=== PATIENT | female | born 1965 | race Caucasian/White ===

== ENCOUNTER → 2018-05-21 | Outpatient (CLI) | payer OTHER ==
[~2018-05-21] MED LIST: ALPR.25T PO; AMLO1CAP4 PO; CETI10TA17 PO; CETI10TA20 PO; CIPR-225 PO; DESV50TA PO
--- NOTE | 2018-05-21 14:13 | Diagnostic Imaging Report ---
INDICATION: Routine screening. COMPARISON: 07/21/2014 and 04/01/2013. TECHNIQUE: 2D and 3D bilateral screening mammography was performed with CAD. FINDINGS: Bilateral breast implants are again noted. The implant contours appear smooth. Scattered fibroglandular densities in both breasts are noted. No mass or malignant appearing microcalcifications are seen. There are benign calcifications present. The axillae are unremarkable. IMPRESSION: No mammographic features suspicious for malignancy are identified. ACR BI-RADS Category 2: Benign findings. Result letter will be mailed to the patient. Note: At least 10% of breast cancer is not imaged by mammography. Dictated by: Dictated on workstation # [id number]
== END ==
LOC: RAD 10:32
PROVIDERS: ATTEND Internal Medicine
DX: Z12.31 Encounter for screening mammogram for malignant neoplasm of breast (principal)
CPT/HCPCS: 77067

== ENCOUNTER 2019-02-19 11:00 | Outpatient (CLI) | payer OTHER ==
[~2019-02-19] VITALS: Ht 175.3 cm; Wt 65.8 kg
[2019-02-19] MEDS ORDERED: AMLO1CAP7 PO (11:30)
[2019-02-20] MEDS ORDERED: AMLO1CAP7 PO (07:36)
[2019-02-20] MEDS ORDERED: HYDR-3812 PO (10:09)
[2019-02-20] MEDS ORDERED: CLIN150C17 PO (10:09)
== END 2019-02-19 11:35 | disposition home or self-care (01) ==
LOC: PREOP 11:00
PROVIDERS: ATTEND Podiatrist Foot & Ankle Surgery
DX: Z01.818 Encounter for other preprocedural examination (principal)
CPT/HCPCS: 87081

== ENCOUNTER 2019-02-20 06:07 | Day surgery (SDC) | payer OTHER ==
[~2019-02-20] VITALS: Ht 175.3 cm; Wt 65.8 kg
[~2019-02-20 06:07] MED LIST changes: +AMLO1CAP7 PO
[2019-02-20 06:15] VITALS: BP 98/72
--- OUTSIDE RECORDS SUMMARY | 2019-02-20 06:16 | XMS REPORT | Continuity of Care Document ---
Author Organization Unknown Address Unknown Allergies Active Description Code Type Severity Reaction Onset Reported/Identified Relationship to Patient Clinical Status Yes Penicillins [id number] Drug Allergy Unknown N/A 09/05/2012 Yes aspirin [id number] Drug Allergy Unknown N/A 04/14/2016 Yes gluten [id number] Drug Allergy Unknown HIVES, SWELLING 04/14/2016 Yes latex [id number] Drug Allergy Unknown ITCHING 04/14/2016 Yes SULFITES SULFITES Unknown throat swells/c 04/14/2016 Yes corn [id number] Drug Allergy Unknown N/A 02/19/2019 Yes nut - unspecified [id number] Drug Allergy Unknown N/A 02/19/2019 Yes sulfite [id number] Drug Allergy Unknown ANAPHYLAXIS 02/19/2019 Medications There is no data. Problems Date Dx Coded Attending Type Code Diagnosis Diagnosed By 04/14/2016 ROMINA HENSLEY MD Ot D72.829 ELEVATED WHITE BLOOD CELL COUNT, UNSPECI 04/14/2016 ROMINA HENSLEY MD Ot E86.0 DEHYDRATION 04/14/2016 ROMINA HENSLEY MD Ot E87.1 HYPO-OSMOLALITY AND HYPONATREMIA 04/14/2016 ROMINA HENSLEY MD Ot N39.0 URINARY TRACT INFECTION, SITE NOT SPECIF 05/22/2018 RHONA ANDERS MD Ot Z12.31 ENCNTR SCREEN MAMMOGRAM FOR MALIGNANT NE 05/22/2018 RHONA ANDERS MD Ot Z12.31 ENCNTR SCREEN MAMMOGRAM FOR MALIGNANT NE 07/03/2018 RHOAN ANDERS MD Ot L50.8 OTHER URTICARIA 07/03/2018 RHONA ANDERS MD Ot R10.9 UNSPECIFIED ABDOMINAL PAIN 01/04/2019 RHONA ANDERS MD Ot Z12.31 ENCNTR SCREEN MAMMOGRAM FOR MALIGNANT NE 01/04/2019 RHONA ANDERS MD Ot L50.8 OTHER URTICARIA 01/04/2019 RHONA ANDERS MD Ot R10.9 UNSPECIFIED ABDOMINAL PAIN 01/05/2019 RHONA ANDERS MD Ot Z12.31 ENCNTR SCREEN MAMMOGRAM FOR MALIGNANT NE 01/05/2019 RHONA ANDERS MD Ot L50.8 OTHER URTICARIA 01/05/2019 RHONA ANDERS MD Ot R10.9 UNSPECIFIED ABDOMINAL PAIN 02/13/2019 RHONA ANDERS MD Ot Z12.31 ENCNTR SCREEN MAMMOGRAM FOR MALIGNANT NE 02/13/2019 RHONA ANDERS MD Ot L50.8 OTHER URTICARIA 02/13/2019 RHONA ANDERS MD Ot R10.9 UNSPECIFIED ABDOMINAL PAIN 02/19/2019 MISAEL DPM, ANDREW Q Ot Z01.818 ENCOUNTER FOR OTHER PREPROCEDURAL EXAMIN 02/19/2019 MISAEL DPM, ANDREW Q Ot Z01.818 ENCOUNTER FOR OTHER PREPROCEDURAL EXAMIN 02/19/2019 MISAEL DPM, ANDREW Q Ot Z01.818 ENCOUNTER FOR OTHER PREPROCEDURAL EXAMIN 02/19/2019 MISAEL DPM, ANDREW Q Ot Z01.818 ENCOUNTER FOR OTHER PREPROCEDURAL EXAMIN 02/19/2019 MISAEL DPM, ANDREW Q Ot Z01.818 ENCOUNTER FOR OTHER PREPROCEDURAL EXAMIN Procedures There is no data. Results There is no data. Encounters ACCT No. Visit Date/Time Discharge Status Pt. Type Provider Facility Loc./Unit Complaint [id number] 02/19/2019 11:00:00 02/19/2019 11:35:00 DIS Outpatient MISAEL DPM, ANDREW Q [facility] PREOP HAMMERTOE [id number] 06/30/2018 11:48:00 06/30/2018 23:59:59 CLS Outpatient RHONA ANDERS MD [facility] LAB ABD PAIN R10.9 [id number] 05/21/2018 10:32:00 05/21/2018 23:59:59 CLS Outpatient RHONA ANDERS MD [facility] RAD SCREENING [id number] 04/14/2016 02:14:00 04/14/2016 05:29:00 DIS Emergency ROMINA HENSLEY MD [facility] ER NAUSEA [id number] 07/21/2014 08:44:00 07/21/2014 23:59:59 CLS Outpatient [id number] 04/01/2013 09:21:00 04/01/2013 23:59:59 CLS Outpatient [id number] 03/23/2013 07:43:00 03/23/2013 23:59:59 CLS Outpatient [id number] 02/20/2019 06:07:00 ACT Outpatient [facility] DOUGLAS DPM [facility]
[2019-02-20] MEDS ORDERED: LACTATED RINGERS 1,000 ML IV PRN (06:26)
[2019-02-20] MEDS ORDERED: CLINDAMYCIN 600 MG/50 ML IVPB 50 ML IV ONE (06:30)
[2019-02-20] MEDS ORDERED: CATHETER FLUSH 10 ML SYR IV PRN (07:00)
[2019-02-20] MEDS ORDERED: BUPIVACAINE 0.5% 30 ML (SENSORCAINE) VIAL ONE (07:17)
--- NOTE | 2019-02-20 07:34 | Progress Note-Pre Operative ---
Pre-Operative Progress Note H&P Reviewed The H&P was reviewed, patient examined and no changes noted. Date Seen by Provider: Feb 20, 2019 Time Seen by Provider: 07:33 Date H&P Reviewed: Feb 20, 2019 Time H&P Reviewed: 07:33 Pre-Operative Diagnosis: Hammertoe 2nd, Hypertrophic 2nd metatarsal, right foot ANDREW DOUGLAS DPM Feb 20, 2019 07:34
[2019-02-20] MEDS ORDERED: MIDAZOLAM 2 MG/2 ML (VERSED) VIAL ONE (07:35)
[2019-02-20] MEDS ORDERED: AMLO1CAP7 PO (07:36)
[2019-02-20] MEDS ORDERED: fentaNYL INJECTION 100 MCG/2 ML AMP ONE (07:51)
[2019-02-20] MEDS ORDERED: PROPOFOL INJECTION 0 ML IV ONE (08:24)
[2019-02-20] MEDS ORDERED: PROPOFOL INJECTION 50 ML IV ONE ×2 (08:54)
[2019-02-20] MEDS ORDERED: DEXAMETHASONE 10 MG/ML (DECADRON) 1 ML VIAL ONE (08:56)
[2019-02-20] MEDS ORDERED: LACTATED RINGERS 1,000 ML IV SCH (09:47)
--- NOTE | 2019-02-20 09:47 | Progress Note-Post Operative ---
Post-Operative Progess Note Surgeon (s)/Outside Plant Cable Engineer (s) Surgeon ANDREW DOUGLAS DPM Outside Plant Cable Engineer: none Pre-Operative Diagnosis Hammertoe 2nd, Hypertrophic 2nd metatarsal, right foot Post-Operative Diagnosis Same with plantar plate rupture Procedure & Operative Findings Date of Procedure 02/20/19 Procedure Performed/Findings Reduction of the 2nd hammertoe, 2nd metatarsal osteotomy, plantar plate repair 2nd MTPJ, all right foot Anesthesia Type General Estimated Blood Loss Estimated blood loss (mL): Minimal Specimens/Packing Specimens Removed None ANDREW DOUGLAS DPM Feb 20, 2019 09:47
[2019-02-20 09:55] VITALS: BP 103/70
[2019-02-20] MEDS ORDERED: HYDR-3812 PO (10:09)
[2019-02-20] MEDS ORDERED: CLIN150C17 PO (10:09)
[2019-02-20 10:25] VITALS: BP 92/65
--- NOTE | 2019-02-20 10:44 | Anesthesia-General Post-Op ---
MAC Patient Condition Mental Status/LOC: Same as Preop Cardiovascular: Satisfactory Nausea/Vomiting: Absent Respiratory: Satisfactory Pain: Controlled Complications: Absent Post Op Complications Complications None Follow Up Care/Instructions Patient Instructions None needed. Anesthesiology Discharge Order Discharge Order Patient is doing well, no complaints, stable vital signs, no apparent adverse anesthesia problems. No complications reported per nursing. JEREL MCADAMS CRNA Feb 20, 2019 10:44
--- NOTE | 2019-02-20 12:24 | Diagnostic Imaging Report ---
INDICATION: Hammertoe. FINDINGS: There has been external fixation of the right second DIP and PIP joints with a pin. There is also hardware in the distal aspect of the second metatarsal. Alignment is grossly normal. Soft tissues are unremarkable. IMPRESSION: Postsurgical changes in the right foot as described. Dictated by: Dictated on workstation # [id number]
--- NOTE | 2019-02-20 17:43 | OPERATIVE REPORT ---
DATE OF SERVICE: 02/20/2019 SURGEON: Elena Douglas DPM. PREOPERATIVE DIAGNOSES: 1. Hammer digit syndrome, right second toe. 2. Hypertrophic second metatarsal, right second. 3. Plantar plate rupture, right second metatarsophalangeal joint. POSTOPERATIVE DIAGNOSES: 1. Hammer digit syndrome, right second toe. 2. Hypertrophic second metatarsal, right second. 3. Plantar plate rupture, right second metatarsophalangeal joint. PROCEDURES: 1. Reduction of hammertoe, right second digit. 2. Second metatarsal osteotomy, right. 3. Plantar plate repair, right second metatarsophalangeal joint. WOUND CLASS: Clean. ANESTHESIA: General. HEMOSTASIS: Pneumatic thigh tourniquet at 250 mmHg. INDICATION: This 53-year-old female presents complaining of a painful right forefoot. Conservative therapy was met with unsatisfactory results and the patient is agreeable to surgical intervention after risks and complications were discussed at length. No guarantees were extended to the patient and she is willing to proceed. DESCRIPTION OF PROCEDURE: The patient was brought back to the operating table, placed in a secure supine position. Appropriate time out was performed. General anesthetic was then induced. A thigh tourniquet was placed on the right lower extremity over several layers of padding. Aseptic technique, it was utilized for anesthesia of local with 0.5% Marcaine injected in a second ray block on the right foot. Right foot was then prepped and draped in normal sterile manner. The right foot was then elevated and allowed to exsanguinate after which the tourniquet was inflated to 250 mmHg. Attention was then directed to the dorsal aspect of the right second metatarsophalangeal joint where a 4 cm longitudinal linear incision was created. The incision was deepened in the same plane with great care to identify and retract all vital neurovascular structures. All the necessary blood vessels were cauterized as encountered. The incision was deepened down to the extensor tendon where a Z slide lengthening was performed. The extensor tendon was reflected proximally and the extensor johnson released overlying the metatarsophalangeal joint. A dorsal capsulorrhaphy was performed to the second metatarsophalangeal joint where release of the medial and lateral collateral ligaments were also performed. This allowed the proximal phalanx to come down into rectus alignment. Utilizing a McGlamry elevator, the plantar adhesions were released to the second metatarsal head. Next, the head of the proximal phalanx of the right second toe was fashioned into a peg with power sagittal saw and power bur. A hole was created to the base of the middle phalanx with a power bur for the peg-in-hole type arthrodesis. Attention was then directed to the second metatarsal where a Glendy type osteotomy was performed. The capital fragment was translocated proximally and fixated temporarily with a K-wire from dorsal to plantar. A second K-wire was applied to the base of the proximal phalanx allowing for distraction of the second metatarsophalangeal joint. Inspection of the plantar plate indicated a longitudinal rent to the distal portion of the plantar plate. Utilizing a Lummi blade, the attachments at the plantar plate were released. Utilizing the [employer] system, two 0 FiberWires were then passed through the more proximal plantar plate. Two fuel pilot engineer holes were created in a crisscross manner to the base of the proximal phalanx allowing the FiberWires to be drawn through these fuel pilot engineer holes at the base of the proximal phalanx. The FiberWires were then applied with tension allowing the advancement of the plantar plate underneath the proximal phalanx allowing for a primary repair of the tear of the plantar plate. Excellent reduction of the rent was appreciated as well as attention to the remaining plantar plate after the FiberWire was secured to the dorsal aspect of the proximal phalanx. Next, the Glendy osteotomy to the second metatarsal head was fixated utilizing two 2.0 snap-off screws of a 13 and 11 mm of length. The wound was flushed with copious amounts of normal saline throughout the procedure. Attention was then directed to the arthrodesis site of the proximal interphalangeal joint of the right second toe where a 0.062 smooth K-wire was placed down the toe securing the arthrodesis site and also allowing the toe to have a more rectus alignment. Excellent bony apposition was appreciated at this time. The excess K-wire was cut and a protective ball placed over the end of the wire. Excellent range of motion was appreciated at the right second metatarsophalangeal joint at this point. The wound was flushed with copious amounts of normal saline and closure was performed in layers. Deep closure was performed with 3-0 Vicryl, superficial with 4-0 Vicryl, skin closed with 4-0 Prolene in a horizontal mattress type stitch. Postoperative injection consisted of 10 mL of 0.5% Marcaine injected in local infusion to the surgical site. Postoperative injections also included 10 mg of dexamethasone. A postoperative dressing was Betadine soaked Adaptic, sterile 4 x 4 and sterile Kerlix, all secured with a Coban wrap. The patient tolerated the anesthesia and procedure well and was transported from the operating room to the recovery area with vital signs stable and vascular status intact to all digits of the right foot. She is to be nonweightbearing on the right foot. She was given a prescription for clindamycin and Vicodin. She is to follow up in my office in 10 days' period of time or sooner if necessary. Job ID: [id number] DocumentID: [id number] Dictated Date: 02/20/2019 09:58:52 Oracle Sql Developer Date: 02/20/2019 17:42:56 Dictated By: ELENA DOUGLAS DPM
--- NOTE | 2019-02-20 19:09 | HISTORY AND PHYSICAL ---
DATE OF SERVICE: 02/20/2019 HISTORY OF PRESENT ILLNESS: The patient is a 53-year-old white female referred for preoperative evaluation for upcoming second right hammertoe reduction and right metatarsal osteotomy with plantar plate repair. She reports that other than the inability to walk without foot pain due to the aforementioned medical problems, she has felt well. She has no past cardiovascular or pulmonary history. She does have a history of chronic urticaria for which she intermittently has to take prednisone. She reports that she has been doing better as of late and it is than over a month since she last had to take a round of prednisone. PAST MEDICAL HISTORY: Significant for episode of left ureterolithiasis, which passed spontaneously. She also has a past history of depression that has been under good control with a strong family history for depression. Lastly, she has had intermittent history of Raynaud's, but has not caused her much trouble since she has been on combination of amlodipine and benazepril 5/10 mg tablet that she takes one b.i.d. OTHER MEDICATIONS: Include venlafaxine ER 150 mg daily. 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 PHYSICAL EXAMINATION: VITAL SIGNS: Blood pressure 102/64 with a heart rate of 66 and regular. GENERAL: Reveals a normal weight well-appearing white female, in no acute distress. HEENT: Unremarkable. CHEST: Clear to auscultation. CARDIOVASCULAR: Reveals regular rate and rhythm without murmur, S3 or S4. EXTREMITIES: Reveal no cyanosis, clubbing or edema. She has the aforementioned hammertoe deformity and some pain at the second metatarsal head over the plantar surface to palpation. ASSESSMENT AND PLAN: There are no medical contraindications to proceeding with the above planned surgical procedure. The patient has a past medical history of depression that is in remission and chronic urticaria without anaphylaxis that responds well to prednisone that she takes intermittently and less so do antihistamines. Job ID: [id number] DocumentID: [id number] Dictated Date: 02/18/2019 16:31:48 Historic Clothing And Costume Maker Date: 02/18/2019 16:49:46 Dictated By: RHONA ANDERS MD
== END 2019-02-20 10:33 | disposition home or self-care (01) ==
LOC: SDC 06:07
PROVIDERS: ATTEND Podiatrist Foot & Ankle Surgery
DX: M20.41 Other hammer toe(s) (acquired), right foot (principal); M89.371 Hypertrophy of bone, right ankle and foot; S93.144A Subluxation of metatarsophalangeal joint of right lesser toe(s), initial encounter; M79.671 Pain in right foot; I73.00 Raynaud's syndrome without gangrene; F32.9 Major depressive disorder, single episode, unspecified; Z79.899 Other long term (current) drug therapy
CPT/HCPCS: 73620

== ENCOUNTER → 2021-01-16 | Outpatient (CLI) | payer OTHER ==
[~2021-01-16] MED LIST changes: +ACHD5005 PO; +AMLO-65 PO; -AMLO1CAP7 PO; -CETI10TA20 PO; +CETI10TA49 PO; +CLIN150C18 PO
--- NOTE | 2021-01-16 10:05 | Diagnostic Imaging Report ---
INDICATION: Routine screening. COMPARISON: 05/21/2018 and 07/21/2014. TECHNIQUE: 2D and 3D bilateral screening mammography was performed with CAD. FINDINGS: Bilateral subpectoral breast implants are again noted. The implant contours appear smooth. Scattered fibroglandular tissues in both breasts are again noted. The parenchymal pattern is stable. No mass or malignant appearing microcalcifications are seen. The axillae are unremarkable. IMPRESSION: No mammographic features suspicious for malignancy are identified. ACR BI-RADS Category 2: Benign findings. Result letter will be mailed to the patient. Note: At least 10% of breast cancer is not imaged by mammography. Dictated by: Dictated on workstation # [id number]
== END ==
LOC: RAD 08:45
PROVIDERS: ATTEND Internal Medicine
DX: Z12.31 Encounter for screening mammogram for malignant neoplasm of breast (principal)
CPT/HCPCS: 77063; 77067

== ENCOUNTER 2021-10-11 12:18 | Outpatient (CLI) | payer OTHER ==
[~2021-10-11] VITALS: Ht 175.3 cm; Wt 68.2 kg
[~2021-10-11 12:18] MED LIST changes: -CLIN150C18 PO; +CLIN150C20 PO
== END 2021-10-11 12:50 | disposition home or self-care (01) ==
LOC: PREOP 12:18
PROVIDERS: ATTEND Orthopaedic Surgery
DX: Z01.818 Encounter for other preprocedural examination (principal)

== ENCOUNTER 2021-10-18 07:57 | Day surgery (SDC) | payer OTHER ==
--- NOTE | 2021-10-11 06:52 | HISTORY AND PHYSICAL ---
DATE OF SERVICE: DATE OF ADMISSION: 10/18/2021. This will be for outpatient surgery on 10/18/2021 for right knee arthroscopy. 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 She reports catching and locking in her right knee. She has undergone treatment with injections with only temporary relief of her symptoms. She reports pain on the anterior aspect of her knee. She reports swelling. She also has pain with stairs, kneeling and squatting. Due to functional impairment and failure to improve with conservative measures, the patient elected to proceed with surgical intervention. REVIEW OF SYSTEMS: No chest pain, no shortness of breath, no dysuria. PAST MEDICAL HISTORY: Raynaud's, allergies. PAST SURGICAL HISTORY: Bilateral hammertoes, hysterectomy, breast and appendectomy. SOCIAL HISTORY: The patient denies tobacco use. She drinks alcohol socially. FAMILY HISTORY: Noncontributory. PRIMARY CARE PROVIDER: Dr. Beck. MEDICATIONS: Amlodipine. ALLERGIES: PENICILLIN, ASPIRIN, LATEX. RADIOGRAPHS: Reveal no acute or chronic changes of the knee. PHYSICAL EXAMINATION: GENERAL: The patient is well-developed, well-nourished, in no acute distress. HEENT: Normocephalic, atraumatic. Pupils are equal, round and reactive to light. Oropharynx is clear. NECK: Supple, no lymphadenopathy. LUNGS: Clear to auscultation bilaterally. HEART: Regular rate and rhythm. ABDOMEN: Soft, nontender, nondistended. EXTREMITIES: The right knee demonstrates patellofemoral crepitus and pain with patellar loading. She has a mild effusion. There is no erythema or warmth. Range of motion is 0/0/135, a trace Ondina with firm endpoint. Negative anterior drawer, negative posterior drawer. No varus or valgus laxity. IMPRESSION: Right knee chondromalacia of the patella. PLAN: Right knee arthroscopy with chondroplasty. The risks, benefits, options, ramifications and recovery have been discussed at length with the patient. She understands and wishes to proceed. Job ID: [id number] DocumentID: [id number] Dictated Date: 10/03/2021 12:24:10 Crate Repairer Date: 10/03/2021 12:38:48 Dictated By: PRINCE JOHNS MD
[~2021-10-18] VITALS: Ht 175.3 cm; Wt 68.2 kg
[2021-10-18] VITALS (11 sets, daily range): BP systolic 91–123; BP diastolic 68–82
[2021-10-18] MEDS ORDERED: HYDROcodone/APAP 7.5 MG/325 MG (LORTAB, LORCET PLUS) TABLET PO PRN (08:15)
[2021-10-18] MEDS ORDERED: CLINDAMYCIN 600 MG/50 ML IVPB 50 ML IV ONE (08:15)
--- NOTE | 2021-10-18 08:30 | Progress Note-Pre Operative ---
Pre-Operative Progress Note H&P Reviewed The H&P was reviewed, patient examined and no changes noted. Date Seen by Provider: Oct 18, 2021 Time Seen by Provider: 08: Date H&P Reviewed: Oct 18, 2021 Time H&P Reviewed: 08:29 Pre-Operative Diagnosis: right knee chondromalacia of the patella PRINCE JOHNS MD Oct 18, 2021 08:30
--- NOTE | 2021-10-18 08:31 | Progress Note-Post Operative ---
Post-Operative Progess Note Surgeon (s)/Senior Network Security Architect (s) Surgeon PRINCE JOHNS MD Senior Network Security Architect: Rey Rasheed Pre-Operative Diagnosis right knee chondromalacia of the patella Post-Operative Diagnosis right knee lateral meniscus tear, chondromalacia of the patella, trochlea, medial and lateral femroal condyles Procedure & Operative Findings Date of Procedure 10/18/21 Procedure Performed/Findings right knee arthroscopic partial lateral meniscectomy and chondroplasty of the medial and lateral femoral condyles, patella and trochlea Anesthesia Type GETA Estimated Blood Loss Estimated blood loss (mL): minimal Specimens/Packing Specimens Removed none Packing: none PRINCE JOHNS MD Oct 18, 2021 08:31
[2021-10-18] MEDS: LACTATED RINGERS 1,000 ML IV PRN ×2 (08:34→10:59)
[2021-10-18] MEDS ORDERED: BUPIVACAINE 0.25% 30 ML (SENSORCAINE) VIAL ONE (08:41)
[2021-10-18] MEDS ORDERED: LIDOCAINE PF 2% 5 ML (XYLOCAINE) VIAL ONE (08:44)
[2021-10-18] MEDS ORDERED: proPOfol 200 MG/20 ML (DIPRIVAN) VIAL IV ONE (08:44)
[2021-10-18] MEDS ORDERED: ONDANSETRON 4 MG/2 ML (SDV) Z0FRAN ONE ×2 (08:44→08:54)
[2021-10-18] MEDS ORDERED: fentaNYL INJ 100 MCG/2 ML AMP ONE (08:44)
[2021-10-18] MEDS ORDERED: ONDANSETRON 4 MG/2 ML (SDV) Z0FRAN IV ONE (08:45)
[2021-10-18] MEDS ORDERED: MIDAZOLAM 2 MG/2 ML (VERSED) VIAL IV ONE (08:45)
[2021-10-18] MEDS ORDERED: MIDAZOLAM 2 MG/2 ML (VERSED) VIAL ONE ×2 (08:54→09:33)
[2021-10-18] MEDS ORDERED: KETOROLAC 30 MG/ML VIAL ONE (09:39)
[2021-10-18] MEDS ORDERED: PROPOFOL INJECTION 100 ML IV ONE (10:00)
[2021-10-18] MEDS ORDERED: ONDANSETRON 4 MG/2 ML (SDV) Z0FRAN IVP PRN (10:30)
[2021-10-18] MEDS ORDERED: PROMETHAZINE INJ 25 MG/ML (PHENERGAN) AMP IVP ONE (10:30)
--- NOTE | 2021-10-18 11:36 | Anesthesia-General Post-Op ---
General Patient Condition Mental Status/LOC: Same as Preop Cardiovascular: Satisfactory Nausea/Vomiting: Absent Respiratory: Satisfactory Pain: Controlled Complications: Absent Post Op Complications Complications None Follow Up Care/Instructions Patient Instructions None needed. Anesthesia/Patient Condition Patient Condition Patient is doing well, no complaints, stable vital signs, no apparent adverse anesthesia problems. No complications reported per nursing. EVELYN WEBER CRNA Oct 18, 2021 11:36
--- NOTE | 2021-10-18 16:34 | OPERATIVE REPORT ---
DATE OF SERVICE: 10/18/2021 PREOPERATIVE DIAGNOSIS: Right knee chondromalacia of patella. POSTOPERATIVE DIAGNOSES: 1. Right knee lateral meniscus tear. 2. Right knee chondromalacia of the medial femoral condyle. 3. Right knee chondromalacia of lateral femoral condyle. 4. Right knee chondromalacia of the patella. 5. Right knee chondromalacia of the trochlea. PROCEDURES: 1. Right knee arthroscopic partial lateral meniscectomy. 2. Right knee arthroscopic chondroplasty of the medial femoral condyle. 3. Right knee arthroscopic chondroplasty of the medial femoral condyle. 4. Right knee arthroscopic chondroplasty of the patella. 5. Right knee arthroscopic chondroplasty of the trochlea. SURGEON: Anjum Tai MD LAND INSPECTOR: CARLOTA Juarez, who assisted throughout the procedure and closed the incisions. ANESTHESIA: General endotracheal by Germán De Jesus CRNA. TOURNIQUET TIME: Not applicable. ESTIMATED BLOOD LOSS: Minimal. DRAINS: None. COMPLICATIONS: None. POSTOPERATIVE PLAN: Routine arthroscopy protocol. The patient was transferred to the recovery room awake and in stable condition. STATEMENT OF MEDICAL NECESSITY: The patient is a 56-year-old very active female with complaints of progressively worsening anterior right knee pain, catching, locking and swelling. She had undergone treatment with injections, rest and activity modifications without relief and due to functional impairment and failure to improve with conservative measures, the patient elected to proceed with surgical intervention. Examination under anesthesia revealed range of motion of 0/0/140 with a negative Ondina, negative anterior and posterior drawer. No varus or valgus laxity and negative pivot shift. Arthroscopic findings: The patella demonstrated grade IV chondral loss centrally in a 15 x 10 area with grade III chondral flaps inferiorly. The trochlea demonstrated grade III chondral flaps superiorly in a 15 x 15 area. The medial and lateral gutters were clear. The ACL and PCL were intact. Lateral compartment demonstrated complex tear of the anterior horn and body of the lateral meniscus involving approximately one-third of the anterior horn and body. In addition, there were grade III chondral flaps of the central portion of the lateral femoral condyle in a 10 x 10 area. The medial compartment demonstrated no meniscal pathology; however, there were grade II chondral flaps near the intercondylar notch in an 8 x 10 area. PROCEDURE IN DETAIL: After risks and benefits of procedure were discussed and questions were answered, informed consent was signed and placed on chart, the operative site was confirmed in preoperative holding area initialed by the surgeon. The patient was then transferred to the operating room and after adequate levels of general endotracheal anesthetic were obtained, a timeout was called, confirming the operative site. Examination under anesthesia was performed with the above findings noted. The right lower extremity was prepped and draped in the usual sterile fashion. The knee joint was injected with 60 mL of fluid and a standard inferolateral portal placed with the arthroscope under direct visualization, inferior medial portal was created, The menisci and cruciates carefully probed with the above findings noted. The unstable chondral flaps on the patella and trochlea were debrided with a shaver back to a stable edge. The scope was redirected into the medial compartment and unstable chondral flaps on the medial femoral condyle and were debrided with shaver back to a stable edge. The scope was redirected into the lateral compartment of the knee, the unstable chondral flaps in lateral femoral condyle were debrided with a shaver back to a stable edge and the body and anterior horn of the lateral meniscus were debrided with a shaver and biter back to a stable edge. This was carefully probed with no further tearing or instability noted. The knee was copiously irrigated. The portal sites were closed with 4-0 nylon in simple interrupted fashion. Knee was injected with Duramorph. The port sites were infiltrated with plain Marcaine and soft dressing was applied and the patient was transferred to the recovery room awake and in stable condition. Job ID: [id number] DocumentID: [id number] Dictated Date: 10/18/2021 10:17:46 Ecd Date: 10/18/2021 16:33:51 Dictated By: ANJUM TAI MD
== END 2021-10-18 12:10 | disposition home or self-care (01) ==
LOC: SDC 07:57
PROVIDERS: ATTEND Orthopaedic Surgery
DX: M22.41 Chondromalacia patellae, right knee (principal); S83.281A Other tear of lateral meniscus, current injury, right knee, initial encounter; I10 Essential (primary) hypertension; Z91.040 Latex allergy status; Z79.899 Other long term (current) drug therapy; Z87.39 Personal history of other diseases of the musculoskeletal system and connective tissue
CPT/HCPCS: 87081

== ENCOUNTER → 2022-02-09 | Outpatient (CLI) | payer OTHER ==
--- NOTE | 2022-02-09 12:06 | Diagnostic Imaging Report ---
INDICATION: Routine screening. Comparison is made with prior mammogram from 01/16/2021 and 05/21/2018. 2-D and 3-D bilateral screening mammography was performed with CAD. Bilateral subpectoral breast implants are noted. Implant contours remain fairly stable. There are scattered fibroglandular densities throughout both breasts. The parenchymal pattern is stable. No mass or malignant-appearing microcalcifications are seen. There are occasional benign calcifications bilaterally. Axillae are unremarkable. IMPRESSION: BI-RADS Category 2 No mammographic features suspicious for malignancy are identified. ACR BI-RADS Category 2: Benign findings. Result letter will be mailed to the patient. Note: At least 10% of breast cancer is not imaged by mammography. Dictated by: Dictated on workstation # [id number]
== END ==
LOC: RAD 11:15
PROVIDERS: ATTEND Internal Medicine
DX: Z12.31 Encounter for screening mammogram for malignant neoplasm of breast (principal)
CPT/HCPCS: 77063; 77067

== ENCOUNTER 2022-03-01 05:34 | Outpatient (CLI) | payer OTHER ==
[~2022-03-01] VITALS: Ht 175.3 cm; Wt 68.0 kg
== END 2022-03-01 13:30 | disposition home or self-care (01) ==
LOC: PREOP 05:34
PROVIDERS: ATTEND Internal Medicine
DX: Z01.818 Encounter for other preprocedural examination (principal)

== ENCOUNTER 2022-03-09 07:02 | Day surgery (SDC) | payer OTHER ==
--- NOTE | 2022-03-01 08:14 | HISTORY AND PHYSICAL ---
DATE OF SERVICE: COLONOSCOPY HISTORY AND PHYSICAL DATE OF ADMISSION: 03/09/2022. HISTORY OF PRESENT ILLNESS: The patient is a 56-year-old white female seen for yearly wellness evaluation. She had not previously accomplished screening colonoscopy. She is deemed to be of average risk and she is not aware of any family history for colon cancer. She reports no bright red blood per rectum, change in bowel habit, melena or change in weight. She has been feeling well. PAST MEDICAL HISTORY: Significant for chronic urticaria as well as Raynaud's, for which she has been taking Lotrel 5/10 mg daily with reasonable control and she still has some minor urticarial eruptions aggravated by stress predominantly and she feels that corn and several other foods aggravate her condition as well that she avoids. She has been walking on a regular basis with a history of depression that she reports is in remission, on no antidepressant therapy at this time. There is a strong family history for depression and her brother committed suicide many years ago. SOCIAL HISTORY: She works as a physical therapist in the hospital. Social alcohol intake qualifies for moderation and no past smoking history. PHYSICAL EXAMINATION: GENERAL: Reveals a white female, appears to be in no acute distress. VITAL SIGNS: Blood pressure was 136/72. HEENT: Unremarkable. Sclerae nonicteric. Ear canals clear with normal TMs. CHEST: Clear to auscultation. CARDIOVASCULAR: Reveals a regular rate and rhythm without murmur, S3 or S4. ABDOMEN: Soft, supple without mass, organomegaly or tenderness. EXTREMITIES: Reveal no cyanosis, clubbing or edema. SKIN: Evaluation reveals no suspicious nevi. LABORATORY DATA: Blood tests were obtained. TSH was normal at 1.08. Nonfasting blood sugar was 111. Chemistry panel is normal. Cholesterol panel is essentially likely ideal, while her total was 238. Her HDL was 128 with an LDL of 99 and triglyceride level of 36. ASSESSMENT AND PLAN: After discussing rationale, the patient is being set up for her first screening colonoscopy. Prep instructions and Suprep kit were given, and questions were answered. We will see her back for yearly wellness evaluation. Stable wellness examination, good health habits. The patient is being set up for routine yearly mammography as well. Job ID: [id number] DocumentID: [id number] Dictated Date: 02/08/2022 11:32:21 Bodybuilder Date: 02/08/2022 12:05:29 Dictated By: RHONA ANDERS MD
[~2022-03-09] VITALS: Ht 175.3 cm; Wt 68.0 kg
[2022-03-09] MEDS ORDERED: LACTATED RINGERS 1,000 ML IV STA (07:09)
[2022-03-09] MEDS ORDERED: LACTATED RINGERS 1,000 ML IV ONE (07:12)
[2022-03-09 07:27] VITALS: BP 135/85
[2022-03-09] MEDS ORDERED: LIDOCAINE 1% INJ 20 ML VIAL ONE (07:34)
[2022-03-09] MEDS ORDERED: PROPOFOL INJECTION 50 ML IV ONE (07:34)
--- NOTE | 2022-03-09 07:35 | Pre-Op Note & Conscious Sedat ---
Pre-Operative Progress Note H&P Reviewed The H&P was reviewed, patient examined and no changes noted. Date H&P Reviewed: Mar 09, 2022 Time H&P Reviewed: 07:15 Conscious Sedation Pre-Proced ASA Score 1 For ASA 3 and 4: Consider anesthesia and medical clearance. Also, for patients with a history of failed moderate sedation consider anesthesia. Airway Lungs Heart ASA score ASA 1: a normal healthy patient ASA 2: a patient with a mild systemic disease (mid diabetes, controlled hypertension, obesity ASA 3: a patient with a severe systemic disease that limits activity (angina, COPD, prior Myocardial infarction) ASA 4: a patient with an incapacitating disease that is a constant threat to life (CHF, renal failure) ASA 5: a moribund patient not expected to survive 24 hrs. (ruptured aneurysm) ASA 6: a declared brain- patient whose organs are being harvested. For emergent operations, add the letter E after the classification Mallampati Classification Grade 1 Sedation Plan Analgesia, Amnesia, Plan communicated to team members, Discussed options with patient/fam, Discussed risks with patient/fam The patient is an appropriate candidate to undergo the planned procedure, sedation, and anesthesia. The patient immediately re-assessed prior to indication. RHONA ANDERS MD Mar 09, 2022 07:35
[2022-03-09] MEDS ORDERED: proPOfol 200 MG/20 ML (DIPRIVAN) VIAL IV ONE ×2 (07:47→08:02)
[2022-03-09 08:08] VITALS: BP 111/60
--- NOTE | 2022-03-09 08:17 | OPERATIVE REPORT ---
DATE OF SERVICE: COLONOSCOPY SUMMARY INDICATION FOR THE PROCEDURE: Screening colonoscopy. DESCRIPTION OF PROCEDURE: The patient was placed in the left lateral decubitus position. Prior to undergoing colonoscopy, digital rectal evaluation was performed. Anal sphincter tone was normal and the perianal reflexes intact. No abnormalities were noted on digital inspection of anal canal or distal rectal vault. The colonoscope was then inserted into the rectum and under direct visualization advanced to cecum. The cecum was identified by identification of ileocecal valve and cecal strap. Photographic documentation was obtained. Quality of prep was good. FINDINGS: There was no evidence for internal or external hemorrhoids and the rectum was unremarkable. No evidence for diverticular disease was noted. There was a 3-mm sessile polyp noted in the proximal sigmoid colon, which was biopsied and ablated with no subsequent blood loss. The descending colon, splenic flexure, transverse colon and hepatic flexure were unremarkable. Present in the proximal ascending colon was a 6 x 1.2 cm sessile polyp without evidence for ulceration with uniform mucosal features. It was photographed and biopsied and ablated in 3 locations with no subsequent blood loss. The cecum was unremarkable. ASSESSMENT: Two polyps were removed via hot forceps today, a 3 mm sessile polyp from the proximal sigmoid colon and 6 x 12 mm sessile polyp in the proximal ascending colon. We will need to assess histopathology report before making recommendations for future surveillance colonoscopy. No other abnormalities noted on today's procedure. Job ID: [id number] DocumentID: [id number] Dictated Date: 03/09/2022 08:07:34 [employer]inder [employer] Operator Automatic Date: 03/09/2022 08:16:13 Dictated By: RHONA ANDERS MD
[2022-03-09 08:27] VITALS: BP 110/72
--- NOTE | 2022-03-09 10:06 | Anesthesia-General Post-Op ---
MAC Patient Condition Mental Status/LOC: Same as Preop Cardiovascular: Satisfactory Nausea/Vomiting: Absent Respiratory: Satisfactory Pain: Controlled Complications: Absent Post Op Complications Complications None Follow Up Care/Instructions Patient Instructions None needed. Anesthesiology Discharge Order Discharge Order Patient is doing well, no complaints, stable vital signs, no apparent adverse anesthesia problems. No complications reported per nursing. ADILENE LYNN CRNA Mar 09, 2022 10:06
== END 2022-03-09 09:05 | disposition home or self-care (01) ==
LOC: ENDO 07:02
PROVIDERS: ATTEND Internal Medicine
DX: Z12.11 Encounter for screening for malignant neoplasm of colon (principal); K63.5 Polyp of colon; L50.8 Other urticaria; I73.00 Raynaud's syndrome without gangrene; Z79.899 Other long term (current) drug therapy
CPT/HCPCS: 88305